=== PATIENT | female | born 1990 | race Caucasian/White ===

== ENCOUNTER 2016-05-24 20:05 | Emergency (ER) | payer SELFPAY ==
[~2016-05-24] VITALS: Ht 160 cm; Wt 64.0 kg
[~2016-05-24 20:05] MED LIST: IBUP600 PO; PRENCAP10 PO; ZANT150T2 PO
[2016-05-24 20:08] VITALS: BP 122/64; PULSE 98; RESP 16; TEMP 98.4; O2SAT 98
== END 2016-05-24 23:16 | disposition left against medical advice (07) ==
LOC: NED 20:05
DX: Z53.21 Procedure and treatment not carried out due to patient leaving prior to being seen by health care provider (principal)
CPT/HCPCS: 99281